=== PATIENT | male | born 1980 | race Caucasian/White ===

== ENCOUNTER 2025-02-19 13:10 | Outpatient (AMB) | payer OTHER, SELFPAY ==
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
[2025-02-19 13:14] VITALS: BMI 27.2
== END 2025-02-19 14:01 | disposition home or self-care (01) ==
LOC: HO.HOS 13:10
DX: S52.611A Displaced fracture of right ulna styloid process, initial encounter for closed fracture (principal)
CPT/HCPCS: 99203

== ENCOUNTER 2025-02-19 13:10 | Outpatient (REF) | payer OTHER, SELFPAY ==
--- NOTE | ~2025-02-19 | XR_ITS ---
EXAMINATION: XR WRIST, LEFT CLINICAL INFORMATION: M25.532 - Pain in left wrist COMPARISON: None available. TECHNIQUE: 4 views of the left wrist. FINDINGS: There is a cortical irregularity of the ulnar styloid and adjacent soft tissue ossification. There is adjacent soft tissue swelling. Differential would include minimally displaced ulnar styloid fracture and erosive changes of the ulnar styloid related to infectious or inflammatory arthritis. There is an old healed fracture of the shaft of the third metacarpal bone and 2 small screws. No other fracture. Mild degenerative changes at the first MCP joint. Joint spaces are otherwise normal. Soft tissues are otherwise normal. XR/XR wrist LT w scaphoid IMPRESSION: Cortical irregularity of the ulnar styloid and adjacent soft tissue ossification. Differential would include ulnar styloid fracture and erosive changes of the ulnar styloid related to infectious or inflammatory arthritis. Healed third metacarpal shaft fracture with 2 small screws. Electronically signed by: Laxmi Harvey MD 02/19/2025 01:44 PM EDT
--- OUTSIDE RECORDS SUMMARY | 2025-02-19 17:02 | XMS_ITS | Clinical Summary ---
Author Organization [address] [facility] Address [address] [place] [address] Phone Care Team Providers Care Sports Coordinator Name Role Phone Cathy Lainez Primary Care Provider [phone] Social History Tobacco Use Types Packs/Day Years Used Date Smoking Tobacco: Former Alcohol Use Standard Drinks/Week Comments Not Currently 0 (1 standard drink = 0.6 oz pur e alcohol) Sex and Gender Information Value Date Recorded Sex Assigned at Not on file Legal Sex Male 9:21 AM EST Gender Identity Not on file Sexual Orientation Not on file Obstetrics History Last Filed Vital Signs Vital Sign Reading Time Taken Comments Blood Pressure 128/80 08/09/2023 8:37 AM EDT Sitting L Arm Pulse 71 08/09/2023 8:37 AM EDT Temperature - - Respiratory Rate - - Oxygen Saturation - - Inhaled Oxygen Concentration - - Weight 110 kg (243 lb 3.2 oz) 8:37 AM EDT Height 188 cm (6' 2 ) 08/09/2023 8:37 AM EDT Body Mass Index 31.23 08/09/2023 8:37 AM EDT Plan of Treatment Upcoming Encounters Date Type Department Care Team (Late st Contact Info) Description 02/25/2025 2:30 PM EDT Consult Orthopedic Surgery - [place] [address] [address] Tejinder Zarco, LARRY [address] [address] Health Maintenance Due Date Last Done Comments Colorectal Cancer Screening: Colonoscopy 1978 DTaP,Tdap,and Td Vaccines (1 - Tdap) 1997 Hepatitis B Vaccines (1 of 3 - 19+ 3-dose series) 1997 Cholesterol Screening (Lipid Panel) 03/27/2022 HIV Screening 03/27/2022 Hepatitis C Screening 03/27/2022 Social Influencers of Health Screening 03/27/2022 Depression Screening 04/30/2024 COVID-19 Vaccine (1 - 2023-2 5 season) 2024 Influenza Vaccine (#1) 2024 RSV Immunization Adult Patie nts (1 - 1-dose 75+ series) 2053 HIB Vaccines Aged Out No longer eligi ble based on patient's age to complete this topic HPV Vaccines Aged Out No longer eligi ble based on patient's age to complete this topic Hepatitis A Vaccines Aged Out No long er eligible based on patient's age to complete this topic IPV Vaccines Aged Out No longer eligi ble based on patient's age to complete this topic MMR Vaccines Aged Out No longer eligi ble based on patient's age to complete this topic Meningococcal ACWY Vaccine Aged Out N o longer eligible based on patient's age to complete this topic Meningococcal B Vaccine Aged Out No l onger eligible based on patient's age to complete this topic Pneumococcal Vaccine: Pediat rics (0 to 5 Years) and At-Risk Patients (6 to 49 Years) Aged Out No longer eligible b ased on patient's age to complete this topic RSV Immunization Patients Un nguyen 20 months Aged Out No longer eligible b ased on patient's age to complete this topic Varicella Vaccines Aged Out No longer eligible based on patient's age to complete this topic Insurance [facility] Care Teams Sports Coordinator Relationship Specialty Start Date End Date Cathy Lainez PA [address] [place] [address] PCP - General 11/29/24
--- OUTSIDE RECORDS SUMMARY | 2025-02-19 17:02 | XMS_ITS | Clinical Summary ---
Author Organization [facility] Address [address] [place] [address] Care Team Providers Care Human Resources Associate Name Role Phone Alayna Crawford Primary Care Provider [phone] Source Comments PLEASE NOTE, if this patient is a minor, it may be UNLAWFUL to discuss sensitive information that is contained in these records (such as FAMILY PLANNING, MENTAL HEALTH or SUBSTANCE ABUSE) with the minor patient's parent or other person without the patient's specific authorization.[facility] Allergies No known active allergies Medications buPROPion HCL (WELLBUTRIN XL) 300 mg 24 hr tablet Take 300 mg by mouth every morning 05/07/19 24 Active traZODone (DESYREL) 100 mg tablet Take 100 mg by mouth nightly at bedtime 05/11/19 24 Active finasteride (PROPECIA) 1 mg tablet Take 1 mg by mouth once daily Active TESTOSTERONE CYPIONATE IM Inject 100 mg into the muscle 2 times a week Patient reports that it is subcutaneous injections Active tadalafiL (CIALIS) 10 mg tablet Take 10 mg by mouth once daily as needed for erectile dysfunction Reports taking 7.5 mg daily PRN Active albuterol HFA 90 mcg/actuation inhalerIndicat ions:Shortness of breath Inhale 2 Puffs into the lungs every 6 (six) hours as needed for shortness of breath or wheezing 8 g 07/03/19 24 Active cyclobenzaprin e (FLEXERIL) 10 mg tabletIndicati ons:Low back pain, unspecified back pain laterality, unspecified chronicity, unspecified whether sciatica present Take 1 Tablet by mouth 2 (two) times daily as needed for muscle spasms 30 Tablet 12/21/19 24 Active budesonide-for moteroL (SYMBICORT) 80-4.5 mcg/actuation inhalerIndicat ions:Shortness of breath INHALE 2 PUFFS INTO THE LUNGS TWICE A DAY 30.6 g 3 01/27/20 24 Active cetirizine (ZYRTEC) 10 mg tabletIndicati ons:Nasal congestion,All ergic rhinitis, unspecified seasonality, unspecified trigger Take 1 Tablet by mouth once daily. 90 Tablet 2 11/20/19 25 Active carbamide peroxide (DEBROX) 6.5 % otic solutionIndica tions:Impacted cerumen of right ear Place 5 Drops into both ears 2 (two) times daily. 15 mL 11/20/19 25 Active venlafaxine XR (EFFEXOR XR) 150 mg 24 hr capsule Take 1 Capsule by mouth 2 (two) times a day. 60 Capsule 01/30/20 25 Active fluticasone (FLONASE) 50 mcg/actuation nasal sprayIndicatio ns:Nasal congestion PLACE 2 SPRAYS IN BOTH NOSTRILS ONCE DAILY 32 mL 2 02/13/20 25 Active venlafaxine XR (EFFEXOR XR) 150 mg 24 hr capsule Take 150 mg by mouth 2 (two) times a day 2024 Discontinued(R eorder (E-Cancel Not Sent)) fluticasone (FLONASE) 50 mcg/actuation nasal sprayIndicatio ns:Nasal congestion Place 2 Sprays in both nostrils once daily. 16 g 1 11/20/19 25 2024 Discontinued Active Problems Problem Noted Date Diagnosed Date Treadmill stress test negative for angina pector is 08/19/2023 Overview (08/19/2023): 08/09/2023: [facility] Stress test revealed normal results PTSD (post-traumatic stress disorder) 07/03/2023 Overview (07/03/2023): Sees psych; Dahlia Arriola [facility] [employer] Anxiety and depression 07/03/2023 Overview (07/03/2023): Sees psych; Dahlia Wilson Encounters Date Type Department Care Team Description 12/08/2024 10:20 AM EDT Office Visit [address] [phone] Mireya Gutierres NAHUN 11/26/2024 3:20 PM EDT Office Visit [address] [phone] Asiya Wan FNP 11/25/2024 Results Follow-Up [address] [phone] Asiya Wan FNP 11/19/2024 1:40 PM EDT Office Visit [address] [phone] Asiya Wan FNP from Last 3 Months Immunizations Immunization Administration Dates Next Due Flu, Preservative Free 01/22/2018 Hep B,adult,adjuvanted (HEPLISAV) 12/27/2023, INFLUENZA, SEASONAL, INJECTABLE 03/31/2014,04/16 TDAP 07/03/2023 Family History Medical History Relation Name Comments Pancreatic cancer Maternal Aunt 1 brain tumor Maternal Aunt 1 Stomach Cancer Maternal Aunt 2 Pancreatic cancer Maternal Uncle Colon Cancer Mother Relation Name Status Comments Father Maternal Aunt 1 Maternal Aunt 2 Maternal Uncle Mother Social History Tobacco Use Types Packs/Day Years Used Date Smoking Tobacco: Former Cigarettes 0.8 3 2 007 - 2009 Passive Smoke Exposure: Never Smokeless Tobacco: Never Tobacco Cessation:Counseling Given: Not Answered Alcohol Use Standard Drinks/Week Comments Not Currently 0 (1 standard drink = 0.6 oz pur e alcohol) Social Connections Answer Date Recorded Connectedness 1 10/03/2023 Financial Resource Strain Answer Date R ecorded Financial Resource Strain 1 2023 Stress Answer Date Recorded Stress 1 10/03/2023 Physical Activity Answer Date Recorded Physical Activity 0 06/04/2023 Food Insecurity Answer Date Recorded Food 1 10/03/2023 Transportation Needs Answer Date Record ed Transportation 1 10/03/2023 Housing Stability Answer Date Recorded Housing 1 10/03/2023 Safety and Environment Answer Date Carlos rded Safety 0 06/04/2023 Utilities Answer Date Recorded Utilities 1 10/03/2023 Employment Answer Date Recorded Stress 0 10/03/2023 Sex and Gender Information Value Date Recorded Sex Assigned at Male 07/03/2023 11:41 AM PST Legal Sex Male 10:14 AM PST Gender Identity Male 07/03/2023 11:41 AM PST Sexual Orientation Straight 07/03/2023 11 :41 AM PST Last Filed Vital Signs Vital Sign Reading Time Taken Comments Blood Pressure 132/76 12/08/2024 10:54 AM EDT Pulse 77 12/08/2024 10:54 AM EDT Temperature 37.1 C (98.7 F) 11/26/2024 3:20 PM EDT Respiratory Rate 16 11/26/2024 3:20 PM EDT Oxygen Saturation 96% 11/26/2024 3:20 PM EDT Inhaled Oxygen Concentration - - Weight 103.7 kg (228 lb 9.6 oz) 11/26/2024 3:20 PM EDT Height 188 cm (6' 2 ) 11/26/2024 3:20 PM EDT Body Mass Index 29.35 11/26/2024 3:20 PM EDT Plan of Treatment Upcoming Encounters Date Type Department Care Team (Late st Contact Info) Description 06/10/2025 3:40 PM EST Office Visit [facility] [phone] [place] [address] Mireya Gutierres, D [address] [place] [address] Health Maintenance Due Date Last Done Comments CT Colonography 2023 Colonoscopy 2023 Colorectal Cancer Screening 2023 FIT/gFOBT 2023 Fecal DNA 2023 Flexible Sigmoidoscopy 2023 [id number] ( season) 2024 021, 07/29/2020 Imm-Influenza (#1) 2024 01/22/2018, 1 06/01/2013, 04/16/2013, Additional history exists Depression Monitoring 02/19/2025 11/19/2024 , 12/21/2023, 12/21/2023, Additional history exists Dental BW 06/11/2025 06/09/2024, 12/05/2023 Dental Perio Charting 06/11/2025 06/09/2024 Annual Wellness (Adult): Ind icated (All Coverage) 11/19/2025 11/19/2024, 07/03/2023 Anxiety Screening 11/19/2025 11/19/2024 Hypertension Screening (#1) 12/08/2025 Tobacco Screening 12/08/2025 12/08/2024 Dental Examination 12/10/2025 12/08/2024, 0 06/09/2024, 12/05/2023 Dental Prophy 12/10/2025 12/08/2024, 05/31, 12/05/2023 Diabetes Screening 11/20/2027 11/19/2024, 0 11/19/2024, 07/03/2023 Dental FMX/Pano 12/06/2028 12/05/2023 Lipid Screening 11/19/2029 11/19/2024, 07/03/2023 Imm-DTaP/Tdap/Td (3 - Td or Tdap) 07/02/2033 024, 09/29/2010 HIV Screening Completed 07/03/2023 Hepatitis C Screening Completed 07/03/2023 Imm-Hepatitis B Completed 12/27/2023, 07/29, 09/11/2005, Additional history exists Alcohol and Drug Screen Completed 11/19/2024, 10/02 Procedures Procedure Name Priority Date/Time Associated Diagnosis Comments PERIODIC ORAL EVALUATION ESTABLISHED PATIENT Routine 12/08/2024 10:20 AM EDT Encounter for dental examination DENTAL CASE MANAGEMENT - MOTIVATIONAL INTV Routine 12/08/2024 10:20 AM EDT Encounter for dental examination PROPHYLAXIS - ADULT Routine 12/08/2024 1 0:20 AM EDT Encounter for dental examination CARIES RISK ASSESSMENT & DOC FINDING HIGH RISK Routine 12/08/2024 10:20 AM EDT Encounter for dental examination NUTRITIONAL COUNSELING CONTROL OF DENTAL DISEASE Routine 12/08/2024 10:20 AM EDT Encounter for dental examination ORAL HYGIENE INSTRUCTIONS Routine 12/08/2024 10:20 AM EDT Encounter for dental examination ORAL CANCER SCREENING Routine 12/08/2024 10:20 AM EDT Encounter for dental examination CASE PRESENTATION SUBS DTL & EXTENSIVE TX PLN Routine 12/08/2024 10:20 AM EDT Encounter for dental examination RFLX - REFLEXIVE URINE CULTURE Routine 11/19/2024 2:19 PM EDT LIPIDS W RFLX TO DIRECT LDL Routine 11/19/2024 2:19 PM EDT Routine general medical examination at a health care facility HGA1C W/EAG Routine 11/19/2024 2:19 PM EDT Routine general medical examination at a health care facility TSH W/RFLX FREE T4 Routine 11/19/2024 2: 19 PM EDT Routine general medical examination at a [facility] care facility URINALYSIS, COMPLETE W/REFLEX TO CULTURE Routine 11/19/2024 2:19 PM EDT Routine general medical examination at a [facility] care facility COMPREHENSIVE METABOLIC PANEL Routine 11/19/2024 2:19 PM EDT Routine general medical examination at a [facility] care facility BLOOD COUNT COMPLETE AUTO&AUTO DIFRNTL WBC Routine 11/19/2024 2:19 PM EDT Routine general medical examination at a health care facility COMP PERIODONTAL EVALUATION - NEW/EST PATIENT Routine 06/09/2024 1:40 PM EST Encounter for dental examination BITEWINGS - FOUR RADIOGRAPHIC IMAGES Routine 06/09/2024 1:40 PM EST Encounter for dental examination INTRAORAL - COMP SERIES OF RADIOGRAPHIC IMAGES Routine 12/05/2023 3:40 PM EDT Encounter for dental examination Caries Caries of enamel (incipient) HIV 1/2 AG & AB W/RFLX (4TH GEN) Routine 07/03/2023 3:46 PM EST Encounter for medical examination to establish care Annual physical exam HEPATITIS C AB W/RFLX HCV RNA, QT, RT PCR Routine 07/03/2023 3:46 PM EST Encounter for medical examination to establish care Annual physical exam from Last 3 Months or Most Recently Relevant to Health Maintenance Results * HGA1C W/EAG Routine (11/19/2024 2:19 PM EDT) HEMOGLOBIN A1C 5.6 <5.7 % [employer] Comment: For the purpose of screening for the presence of diabetes: <5.7% Consistent with the absence of diabetes 5.7-6.4% Consistent with increased risk for diabetes (prediabetes) > or =6.5% Consistent with diabetes This assay result is consistent with a decreased risk of diabetes. Currently, no consensus exists regarding use of hemoglobin A1c for diagnosis of diabetes in children. According to [place] Diabetes Association (ADA) guidelines, hemoglobin A1c <7.0% represents optimal control in non- diabetic patients. Different metrics may apply to specific patient populations. Standards of Medical Care in Diabetes(ADA). EAG (MG/DL) 114 mg/dL [facility] EAG (MMOL/L) 6.3 mmol/L [facility] Blood Blood / Unknown 11/19/2024 2 :19 PM EDT 11/19/2024 2:20 PM EDT Narrative [employer] - 11/20/2024 11:01 AM EDT FASTING:NO Asiya SANC[facility] - BLOOD DRAW Fran dorothy Result - Final Performing Organization Address [facility] Co de Phone Number [employer] [address] [place] [id number], [employer] [facility] [facility] [address] [address] * TSH W/RFLX FREE T4 Routine (11/19/2024 2:19 PM EDT) Pathologist [facility] TSH W/REFLEX TO FT4 1.24 0.40 - 4.50 mIU/L [employer] [facility] Blood Blood / Unknown 11/19/2024 2 :19 PM EDT 11/19/2024 2:20 PM EDT Narrative [employer] - 11/20/2024 11:01 AM EDT FASTING:NO us Asiya SANC[facility] - BLOOD DRAW Fran dorothy Result - Final [employer] [facility] [address] [address], [employer] [address] [address] * (ABNORMAL) LIPIDS W RFLX TO DIRECT LDL Routine (11/19/2024 2:19 PM EDT) CHOLESTEROL, TOTAL 112 <200 mg/dL [employer] [facility] HDL CHOLESTEROL 35(L) > OR = 40 mg/dL [employer] [facility] TRIGLYCERIDES 52 <150 mg/dL [employer] [facility] LDL-CHOLESTEROL 64 99 mg/dL (calc) [employer] [facility] Comment: Reference range: <100 Desirable range <100 mg/dL for primary prevention; <70 mg/dL for patients with CHD or diabetic patients with > or = 2 CHD risk factors. LDL-C is now calculated using the Irene calculation, which is a validated novel method providing better accuracy than the Friedewald equation in the estimation of LDL-C. Glen SS et al. ELISSA. 2013;310(19): 0806-9689 (http://education.Futubank/faq/RPD937) CHOL/HDLC RATIO 3.2 <5.0 (calc) [employer] [facility] NON-HDL CHOLESTEROL 77 <130 mg/dL (calc) [employer] [facility] Comment: For patients with diabetes plus 1 major ASCVD risk factor, treating to a non-HDL-C goal of <100 mg/dL (LDL-C of <70 mg/dL) is considered a therapeutic option. Blood Blood / Unknown 11/19/2024 2 :19 PM EDT 11/19/2024 2:20 PM EDT Narrative [employer] [facility] - 11/20/2024 11:01 AM EDT FASTING:NO Asiya S[facility] - BLOOD DRAW Fin al Result Performing Organization Address [facility]/ZIP Co de Phone Number [employer] [facility] [address] [address], [employer] [address] [address] * (ABNORMAL) URINALYSIS, COMPLETE W/REFLEX TO CULTURE Urine Routine (11/19/2024 2:19 PM EDT) COLOR YELLOW YELLOW [employer] [facility] APPEARANCE CLEAR CLEAR [facility] SPECIFIC GRAVITY 1.009 1.001 - 1.035 [facility] URINE PH 6.0 5.0 - 8.0 [facility] GLUCOSE NEGATIVE NEGATIVE [facility] BILIRUBIN NEGATIVE NEGATIVE [facility] KETONES TRACE(A) NEGATIVE [facility] OCCULT BLOOD NEGATIVE NEGATIVE [facility] URINE PROTEIN NEGATIVE NEGATIVE [facility] NITRITE NEGATIVE NEGATIVE [facility] LEUKOCYTE ESTERASE NEGATIVE NEGATIVE [facility] URINE LEUKOCYTES NONE SEEN < OR = 5 [facility] RBC NONE SEEN < OR = 2 [facility] SQUAMOUS EPITHELIAL CELLS NONE SEEN < OR = 5 [facility] BACTERIA NONE SEEN NONE SEEN [facility] HYALINE CAST NONE SEEN NONE SEEN [facility] SEE NOTE See Below [facility] Comment: This urine was analyzed for the presence of WBC, RBC, bacteria, casts, and other formed elements. Only those elements seen were reported. Urine Urine specimen / Unknown 11/19/2024 2:19 PM EDT 11/19/2024 2:20 PM EDT Narrative [facility] [employer] - 11/20/2024 11:01 AM EDT FASTING:NO Asiya [facility] URINE AMBULATORY Edited Result - Final [facility] [address] [address], [facility] [address] [address] * RFLX - REFLEXIVE URINE CULTURE Routine (11/19/2024 2:19 PM EDT) REFLEXIVE URINE CULTURE See Below [facility] Comment:NO CULTURE INDICATED 11/19/2024 2:19 PM EDT 11/19/2024 2:20 PM EDT Narrative [facility] - 11/20/2024 11:01 AM EDT FASTING:NO Asiya Wan [facility] - MICROBIOLOGY A MBULATORY Edited Result - Final [employer] [facility] [address] [address], [facility] [address] [place] [address] * BLOOD COUNT COMPLETE AUTO&AUTO DIFRNTL WBC Routine (11/19/2024 2:19 PM EDT) WHITE BLOOD CELL COUNT 7.7 3.8 - 10.8 Thousand/ uL [employer] RED BLOOD CELL COUNT 5.06 4.20 - 5.80 Million/u L [employer] HEMOGLOBIN 16.0 13.2 - 17.1 g/dL [employer] HEMATOCRIT 48.5 38.5 - 50.0 % [employer] MCV 95.8 80.0 - 100.0 fL [employer] MCH 31.6 27.0 - 33.0 pg [employer] MCHC 33.0 32.0 - 36.0 g/dL [employer] Comment: For adults, a slight decrease in the calculated MCHC value (in the range of 30 to 32 g/dL) is most likely not clinically significant; however, it should be interpreted with caution in correlation with other red cell parameters and the patient's clinical condition. RDW 12.5 11.0 - 15.0 % [employer] PLATELET COUNT 241 140 - 400 Thousand/ uL [employer] MPV 10.7 7.5 - 12.5 fL [employer] ABSOLUTE NEUTROPHILS 4,751 1,500 - 7,800 cells/uL [employer] ABSOLUTE LYMPHOCYTES 2,210 850 - 3,900 cells/uL [employer] ABSOLUTE MONOCYTES 593 200 - 950 cells/uL [employer] ABSOLUTE EOSINOPHILS 108 15 - 500 cells/uL [employer] ABSOLUTE BASOPHILS 39 0 - 200 cells/uL [employer] NEUTROPHILS PCT 61.7 % [employer] LYMPHOCYTES 28.7 % [facility] MONOCYTES 7.7 % [facility] EOSINOPHILS 1.4 % [facility] BASOPHILS 0.5 % [facility] Blood Blood / Unknown 11/19/2024 2 :19 PM EDT 11/19/2024 2:20 PM EDT Narrative [employer] [facility] - 11/20/2024 11:01 AM EDT FASTING:NO Asiya SANC[facility] - BLOOD DRAW Fran dorothy Result - Final [employer] [facility] [address] [address], [employer] [facility] [address] [place] [address] * COMPREHENSIVE METABOLIC PANEL Routine (11/19/2024 2:19 PM EDT) Pathologist [facility] GLUCOSE 73 65 - 139 mg/dL [employer] [facility] Comment: Non-fasting reference interval UREA NITROGEN (BUN) 19 7 - 25 mg/dL [facility] CREATININE (blood) 1.00 0.60 - 1.29 mg/dL [facility] EGFR 94 > OR = 60 mL/min/1. 73m2 [employer] [facility] [facility] BUN/CREATININE RATIO SEE NOTE: [employer] [facility] Comment: Not Reported: BUN and Creatinine are within reference range. SODIUM 139 135 - 146 mmol/L [employer] [facility] POTASSIUM 3.9 3.5 - 5.3 mmol/L [facility] CHLORIDE 102 98 - 110 mmol/L [facility] CARBON DIOXIDE 26 20 - 32 mmol/L [facility] CALCIUM 9.4 8.6 - 10.3 mg/dL [facility] PROTEIN, TOTAL 7.1 6.1 - 8.1 g/dL [facility] ALBUMIN 4.6 3.6 - 5.1 g/dL [facility] GLOBULIN 2.5 1.9 - 3.7 g/dL (calc) [facility] ALBUMIN/GLOBULI N RATIO 1.8 1.0 - 2.5 (calc) [facility] BILIRUBIN, TOTAL 0.3 0.2 - 1.2 mg/dL [facility] ALKALINE PHOSPHATASE 47 36 - 130 U/L [facility] AST 27 10 - 40 U/L [facility] ALT 12 9 - 46 U/L [facility] Blood Blood / Unknown 11/19/2024 2 :19 PM EDT 11/19/2024 2:20 PM EDT Narrative [employer] [facility] - 11/20/2024 11:01 AM EDT FASTING:NO Asiya SANCHEZ [facility] - BLOOD DRAW Fin al Result Performing Organization Address City/[facility]/ZIP Co de Phone Number [employer] [address] [address], [employer] [facility] [address] [address] * HEPATITIS C AB W/RFLX HCV RNA, QT, RT PCR (07/03/2023 3:46 PM EST) HEPATITIS C ANTIBODY NON-REACT TENNILLE NON-REACT TENNILLE [employer] [facility] Comment: HCV antibody was non-reactive. There is no laboratory evidence of HCV infection. In most cases, no further action is required. However, if recent HCV exposure is suspected, a test for HCV RNA (test code 04764) is suggested. For additional information please refer to http://S[employer]U.[employer]ated Media Measurement (IMMI)/faq/HEF51e0 (This link is being provided for informational/ educational purposes only.) Blood Blood / Unknown 07/03/2023 3 :46 PM EST 07/03/2023 3:46 PM EST Alayna ROYAL [facility] - BLOOD DRAW Edited Result - Final Performing Organization Address [facility] Co de Phone Number [employer] [address] [address], [employer] [facility] [facility] [address] [address] * HIV 1/2 AG & AB W/RFLX (4TH GEN) (07/03/2023 3:46 PM EST) HIV AG/AB, 4TH GEN NON-REAC TIVE NON-REAC TIVE [employer] [facility] Comment: HIV-1 antigen and HIV-1/HIV-2 antibodies were not detected. There is no laboratory evidence of HIV infection. PLEASE NOTE: This information has been disclosed to you from records whose confidentiality may be protected by state law. If your state requires such protection, then the state law prohibits you from making any further disclosure of the information without the specific written consent of the person to whom it pertains, or as otherwise permitted by law. A general authorization for the release of medical or other information is NOT sufficient for this purpose. For additional information please refer to http://education.Integrated Media Measurement (IMMI)/faq/UXK124 (This link is being provided for informational/ educational purposes only.) The performance of this assay has not been clinically validated in patients less than 2 years old. Blood Blood / Unknown 07/03/2023 3 :46 PM EST 07/03/2023 3:46 PM EST us Alayna ROYAL [facility] - BLOOD DRAW Final Result [employer] [address] [address], [employer] [facility] [facility] [address] [address] from Last 3 Months or Most Recently Relevant to Health Maintenance Insurance [employer] [facility] Care Teams Human Resources Associate Relationship Specialty Start Date End Date Alayna Crawford PA [address] [place] [address] PCP - General Primary Care 06/04/23
== END 2025-02-19 13:11 | disposition home or self-care (01) ==
LOC: HO.HOSX 13:10
DX: S52.611A Displaced fracture of right ulna styloid process, initial encounter for closed fracture (principal); M25.532 Pain in left wrist; V13.9XXA Unspecified pedal cyclist injured in collision with car, pick-up truck or van in traffic accident, initial encounter; Y93.55 Activity, bike riding
CPT/HCPCS: 73110

== ENCOUNTER → 2025-02-19 13:31 | Outpatient (BNV) | payer OTHER, SELFPAY | PROVIDERS: Visit Provider Radiology Diagnostic Radiology | DX: M89.8X3 Other specified disorders of bone, forearm (principal) | CPT/HCPCS: 73110 ==

== ENCOUNTER 2025-04-03 11:15 | Outpatient (AMB) | payer OTHER, SELFPAY ==
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
[2025-04-03 11:33] VITALS: BMI 27.2
== END 2025-04-03 11:46 | disposition home or self-care (01) ==
LOC: HO.HOS 11:15
DX: S52.611A Displaced fracture of right ulna styloid process, initial encounter for closed fracture (principal)
CPT/HCPCS: 99213

== ENCOUNTER 2025-04-21 10:52 | Outpatient (RCR) | payer OTHER, SELFPAY ==
--- NOTE | 2025-04-08 15:15 | MHC.OT.EP ---
[facility] Office [address] [phone] F: [phone] F: [phone] Occupational Therapy Plan of Care Patient Name: Juanito Naylor Date of Evaluation: 04/08/25 Diagnosis: s/p right ulnar styolid fracture Pain Location: Pain in ulnar wrist Current: 1/10 Worst: 4/10 Pain Score: 1 Pain Scale Used: Numeric (0 - 10) Aggravating Factors: Weightbearing, opening jars Alleviating Factors: Rest Assessment: Juanito is a 45 y/o left hand dominant male presenting several months s/p ulnar styloid fracture with near-complete recovery of wrist ROM but persistent functional deficits limiting return to prior level of function. Slight supination limitation and residual pain with resistive gripping activities (jar opening, gym exercises) indicate continued need for skilled intervention. Pt would benefit from skilled short term rehab for therapeutic exercise progression, joint protection education, and functional activity training. Frequency and Duration: The patient will be seen 2x/wk for 2 weeks Short Term Goals: STG's = LTG's Assisted Goals: Pain free left wrist with ADL's and gym related tasks Improve L wrist ROM to WNL's Tolerate full weight bearing push-ups throughout L UE without pain Demo proper biomechanics and gripping strategies during functional activities Treatment Plan: Therapeutic Exercise Therapeutic Activity Home Exercise Program Patient Education [facility] Soft Tissue Mobilization Electronically Signed By: Ailin Alexis, OTR/L Please Sign and return to therapist. Thank you once again for your referral.
== END 2025-04-21 11:35 | disposition home or self-care (01) ==
LOC: HO.OTS 10:52
DX: S52.611D Displaced fracture of right ulna styloid process, subsequent encounter for closed fracture with routine healing (principal)
CPT/HCPCS: 97035; 97110; 97165